=== PATIENT | male | born 1980 | race Caucasian/White ===

== ENCOUNTER 2024-03-16 06:47 | Emergency (ER) | payer BC, OTHER, SELFPAY | END 2024-03-16 07:41 | disposition home or self-care (01) | LOC: ERS 06:47 | DX: M62.838 Other muscle spasm (principal); V23.49XA Other motorcycle driver injured in collision with car, pick-up truck or van in traffic accident, initial encounter; Y93.89 Activity, other specified; Y92.89 Other specified places as the place of occurrence of the external cause | CPT/HCPCS: 99283 ==